=== PATIENT | female | born 1980 | race Caucasian/White ===

== ENCOUNTER 2018-08-31 10:29 | Emergency (ER) | payer OTHER ==
[~2018-08-31] VITALS: Ht 152.4 cm; Wt 45.0 kg
[2018-08-31 10:37] VITALS: BP 112/71; PULSE 73; RESP 16; Ht 152.4 cm; Wt 45.0 kg
--- NOTE | 2018-08-31 11:30 | ERD ---
ER Documentation Chief Complaint Chief Complaint [employer] ACCIDENTAL NEEDLE STICK TO RFA HPI 38-year-old otherwise healthy woman who works in a [employer] sustained a superficial right anterior forearm abrasion after blood draw with a needle. She has no history of hepatitis or HIV and is here for evaluation and PEP counseling. Patient cleansed her arm and placed gauze dressing and has no complaints at this time. Episode occurred just prior to arrival ROS All systems reviewed and are negative except as per history of present illness. Allergies Allergies: Coded Allergies: No Known Allergy (Unverified , 08/31/18) PMhx/Soc Medical and Surgical Hx: pt denies Medical Hx, pt denies Surgical Hx Hx Alcohol Use: No Hx Substance Use: No Hx Tobacco Use: No FmHx Family History: No diabetes Physical Exam Vitals Vital Signs Date Temp Pulse Resp B/P (MAP) Pulse Ox O2 O2 Flow FiO2 Time Delivery Rate 08/31/18 97.9 73 16 112/71 97 10:37 (85) Physical Exam GENERAL: Well-developed, well-nourished, well-hydrated, in no apparent distress, looks nontoxic in appearance HEENT: Moist mucous membranes, pink conjunctiva, no cervical spine tenderness or step-off deformities, no goiter, no jaundice or icterus, extraocular movements intact without pain. No submandibular induration, and no pharyngeal erythema NEURO: Alert and oriented 3, cranial nerves II through XII intact bilaterally, pupils equal round reactive to light, gait normal SKIN: Warm and dry to touch, about a centimeter long extremely thin superficial abrasion along the right mid forearm without active bleeding, no puncture wound or laceration noted EXTREMITIES: No clubbing cyanosis or edema, calves are bilaterally symmetrical, no Homans sign, no popliteal cord sign. Distal pulses equal and bilateral PSYCH: Normal affect without agitation or irritability Results 24 hrs Laboratory Tests Test 08/31/18 11:17 Hepatitis B Surface Antigen NEGATIVE Hepatitis B Surface Antibody POSITIVE Hepatitis C Antibody NEGATIVE HIV (1&2) Antibody NEGATIVE Procedures/MDM I spoke to the patient regarding post exposure prophylactic therapy and explained to her both the risks and benefits associated with using these medications. After thinking about the issues she decided to defer PEP therapy for now Workplace needlestick injury labs were drawn results are pending I will follow- up. Patient feels much better at this time, and vital signs are normal, symptoms have improved. I did give strict instructions to return to the ED if symptoms continue or worsen, patient will otherwise follow-up with primary care physician. Patient understood instructions and agreed to plan. Disclaimer: Inadvertent spelling and grammatical errors are likely due to EHR/dictation software use and do not reflect on the overall quality of patient care. Also, please note that the electronic time recorded on this note does not necessarily reflect the actual time of the patient encounter. Departure Diagnosis: Primary Impression: Abrasion of right forearm Encounter type: initial encounter Qualified Codes: S50.811A - Abrasion of right forearm, initial encounter Condition: Good Patient Instructions: MANAN Montero MD Aug 31, 2018 11:30
== END 2018-08-31 11:43 | disposition home or self-care (01) ==
LOC: FTE 10:29
DX: S50.811A Abrasion of right forearm, initial encounter (principal); W46.0XXA Contact with hypodermic needle, initial encounter; Y92.89 Other specified places as the place of occurrence of the external cause
CPT/HCPCS: 86703; 86706; 86803; 87340; 99283